=== PATIENT | male | born 1965 | race Caucasian/White ===

== ENCOUNTER 2025-05-17 19:23 | Inpatient (IN) | payer SELFPAY ==
[2025-05-17 19:25] VITALS: BP 125/80; PULSE 83; RESP 16; TEMP 36.8; O2SAT 96; BMI 19.3
--- NOTE | 2025-05-17 19:27 | ED.C_ITS ---
HPI - Psych 2 General: Chief Complaint: Psychiatric Symptoms Stated Complaint: 96 HOUR HOLD Time Seen by Provider: 05/17/25 19:26 Source: patient Mode of arrival: ambulatory Limitations: no limitations History of Present Illness: Patient is a 60-year-old male who presents to ED today on 96 hour hold. According to hold paperwork, affidavit was filed by [facility]. They reported that they were unable to meet with client directly but was able to observe several text messages sent by the patient consisting of delusional thought content of a spiritual nature. Affidavit states the client sent 100s of text messages over a brief period of time with ruminating thoughts and paranoia. During my examination with patient he does have somewhat excessive and tangential speech. MD complaint: other (96 hour hold) Relieving factors: none Exacerbating factors: none Associated psychiatric symptoms: none Associated symptoms: Deny auditory hallucinations, visual hallucinations, depression, homicidal ideation or suicidal ideation Treatments prior to arrival: none Related Data Allergies Allergy/AdvReac Type Severity Reaction Status Date / Time No Known Allergies Allergy Verified 05/17/25 19:46 Review of Systems 2 Const: Denies: fever(s) or chills Card: Denies: chest pain, palpitations, lightheadedness or syncope Resp: Denies: dyspnea GI: Denies: abdominal pain, nausea, vomiting or diarrhea Skin/Breast: Denies: rash Neuro: Denies: headache(s) Psych: Denies: anxiety, depression, hopelessness, visual hallucinations, auditory hallucinations, suicidal ideation or homicidal ideation Physical Exam 2 Const: COMMON NORMALS: no acute distress, average body habitus, patient oriented x3, no limitations, healthy appearing, alert and well nourished G ENERAL APPEARANCE: cooperative NUTRITIONAL APPEARANCE: thin O RIENTATION/CONSCIOUSNESS: Yes awake, Yes oriented to person, Yes oriented to place and Yes oriented to time Resp: COMMON NORMALS: normal respiratory effort and clear to auscultation bilaterally AUSCULTATION: clear to auscultation bilaterally Cardio: COMMON NORMALS: regular rate and regular rhythm RATE: regular rate RHYTHM: regular rhythm Neuro: COMMON NORMALS: patient oriented x3 SENSORIUM/ORIENTATION: Yes alert, Yes oriented to person, Yes oriented to place and Yes oriented to time Psych: COMMON NORMALS: mental status grossly normal, cooperative, normal affect, speech normal, activity/motor behavior normal, denies hallucinations, denies homicidal ideation and denies suicidal ideation APPEARANCE: Yes grossly normal ATTITUDE: Yes calm ACTIVITY/MOTOR BEHAVIOR: Yes appropriate eye contact and No psychomotor agitation SPEECH: Yes normal speech MOOD & AFFECT: Yes euthymic mood THOUGHT PROCESS: disorganized (mild) and Tangential thought process present (mild) THOUGHT CONTENT: Yes Normal thought content present ATTENTION/CONCENTRATION: Yes attention grossly intact and Yes concentration grossly intact MEMORY/COGNITION: Yes memory grossly intact and Yes cognition grossly intact INSIGHT: Fair insight present (Psych) J UDGEMENT: Fair judgement present (Psych) Course 2 Consultations: Consultation #1: Dr. Peña-accepts to NPU Vital Signs: Vital signs: Vital Signs Temperature 98.2 F 05/17/25 19:25 Pulse Rate 83 05/17/25 19:25 Respiratory Rate 16 05/17/25 19:25 Blood Pressure 125/80 05/17/25 19:25 Pulse Oximetry 96 05/17/25 19:25 Oxygen Delivery Me thod Room Air 05/17/25 19:25 MDM - Psych Medical Decision Making Patient will be an admit to NPU to Dr. Peña for psychiatric assessment as he is on a 96 hour hold. Lab Data 05/17/25 19:48 05/17/25 19:48 Laboratory Results WBC 7.48 10^3/uL (3.29-11.43) 05/17/25 19:48 RBC 4.87 10^6/uL (3.85-5.65) 05/17/25 19:48 Hgb 14.80 g/dL (11.27-16.99) 05/17/25 19:48 Hct 43.9 % (37-53) 05/17/25 19:48 MCV 90.1 fl (82-101) 05/17/25 19:48 MCH 30.4 pg (27-33) 05/17/25 19:48 MCHC 33.7 g/dL (30-55) 05/17/25 19:48 RDW 12.7 % (12.1-15.1) 05/17/25 19:48 Plt Count 234 10^3/cmm (157-399) 05/17/25 19:48 MPV 9.6 fL (7.4-10.4) 05/17/25 19:48 Neut % (Auto) 55.2 % 05/17/25 19:48 Lymph % (Auto) 34.4 % 05/17/25 19:48 [place] % (Auto) 8.2 % 05/17/25 19:48 Eos % (Auto) 1.2 % 05/17/25 19:48 Baso % (Auto) 0.9 % 05/17/25 19:48 Neut # (Auto) 4.13 10^3/uL (1.8-7.7) 05/17/25 19:48 Lymph # (Auto) 2.6 10^3/uL (0.8-4.8) 05/17/25 19:48 [place] # (Auto) 0.6 10^3/uL (0.2-0.9) 05/17/25 19:48 Eos # (Auto) 0.1 10^3/uL (0.0-0.8) 05/17/25 19:48 Baso # (Auto) 0.1 10^3/uL (0.0-0.1) 05/17/25 19:48 Nucleated RBC % (auto) 0 % 05/17/25 19:48 Nucleated RBCs # 0.0 /100WBC 05/17/25 19:48 Sodium 137 mmol/L (136-145) 05/17/25 19:48 Potassium 3.8 mmol/L (3.5-5.1) 05/17/25 19:48 Chloride 97 mmol/L (98-107) L 05/17/25 19:48 Carbon Dioxide 24 mmol/L (22-29) 05/17/25 19:48 Anion Gap 19.8 (5-19) H 05/17/25 19:48 BUN 18 mg/dL (8-23) 05/17/25 19:48 Creatinine 0.8 mg/dL (0.7-1.2) 05/17/25 19:48 GFR Calculation 98.0 mL/min (90-130) 05/17/25 19:48 Glucose 131 mg/dL (65-115) H 05/17/25 19:48 Calculated Osmolality 288 mOsm/kg (285-295) 05/17/25 19:48 Calcium 9.3 mg/dL (8.5-10.5) 05/17/25 19:48 Total Bilirubin 0.5 mg/dL (0.15-1.2) 05/17/25 19:48 AST 19 U/L (0-40) 05/17/25 19:48 ALT 8 U/L (0-41) 05/17/25 19:48 Alkaline Phosphatase 59 U/L (40-130) 05/17/25 19:48 Total Protein 7.6 g/dL (6.6-8.7) 05/17/25 19:48 Albumin 4.4 g/dL (3.5-5.2) 05/17/25 19:48 Globulin 3.2 g/dL (1.3-4.6) 05/17/25 19:48 Salicylates < 0.3 mg/dL (3-10) L 05/17/25 19:48 Acetaminophen < 5.0 ug/mL (10-30) L 05/17/25 19:48 Ethyl Alcohol < 10 mg/dL (0-10) 05/17/25 19:48 No radiology studies performed this visit Discharge Plan Discharge Patient Disposition: Admitted As Inpatient Clinical Impression: Involuntary commitment Condition: Stable Coding Level of Care Code ED Clinical Document Improvement Educator for Peggy Patel
--- OUTSIDE RECORDS SUMMARY | 2025-05-17 19:27 | XMS_ITS | Encounter Summary ---
Author Organization [email or web address] [facility] Address [address] [place] [address] Care Team Providers Care Sr. Manager Corporate Communications Name Role Phone Unavailable Primary Care Provider Unavailabl e Encounter Details Date Type Department Care Team (Latest Contact Info) Description 09/05/2004 Outpatient Historical [facility] Neurology [address], [address] [place] [address] Debra Rodriguez MD [address] [place] [address] BONE CYST NEC (Primary Dx) Social History Tobacco Use Types Packs/Day Years Used Date Smoking Tobacco: Never Assessed Sex and Gender Information Value Date Recorded Sex Assigned at Not on file 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
--- OUTSIDE RECORDS SUMMARY | 2025-05-17 19:27 | XMS_ITS | Encounter Summary ---
Author Organization [facility] Address [address] [place] [address] Care Team Providers Care Trawl Net Maker Name Role Phone Unavailable Primary Care Provider Unavailabl e Encounter Details Date Type Department Care Team (Late st Contact Info) Description 09/24/2004 Outpatient Historical [facility] Ear, Nose and Throat 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
--- OUTSIDE RECORDS SUMMARY | 2025-05-17 19:27 | XMS_ITS | Clinical Summary ---
Author Organization [facility] Address [address] 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
--- OUTSIDE RECORDS SUMMARY | 2025-05-17 19:27 | XMS_ITS | Encounter Summary ---
Author Organization [facility] Address [address] [place] [address] Care Team Providers Care Microbiology Quality Control Technician Name Role Phone Unavailable Primary Care Provider Unavailabl e Encounter Details Date Type Department Care Team (Latest Contact Info) Description 09/23/2004 Outpatient Historical [facility] Neurosurgery- [address] [place] [address] Hamilton Reyes MD [address] [place] [address] BRAIN NEOPLASM NOS (CMS/HCC) (Primary Dx) Social History Tobacco Use Types Packs/Day Years Used Date Smoking Tobacco: Never Assessed Sex and Gender Information Value Date Recorded Sex Assigned at Not on file 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
--- NOTE | 2025-05-17 19:52 | PC.NURSE ---
Dunia Spence called for patient update. Was instructed by patient to give daughter update on patient status. Dunia Bebe Moe can be contacted by [phone]
[2025-05-17 19:55] LABS: Hematocrit 43.9 % (37-53); Hemoglobin 14.80 g/dL (11.27-16.99); Mean Corpuscular HGB Conc 33.7 g/dL (30-55); Mean Corpuscular Hemoglobin 30.4 pg (27-33); Mean Corpuscular Volume 90.1 fl (82-101); Nucleated Red Blood Cells % 0 %; Platelet Count 234 10^3/cmm (157-399); Red Blood Count 4.87 10^6/uL (3.85-5.65); White Blood Count 7.48 10^3/uL (3.29-11.43)
--- NOTE | 2025-05-17 20:03 | PC.NURSE ---
96 Hour Involuntary Hold Patient Rights have been reviewed with the patient and a copy of the same has been provided to him. Manager Retail Sales Jones was present at bedside during the presentation of Rights.
[2025-05-17 20:14] LABS: Alanine Aminotransferase 8 U/L (0-41); Albumin Level 4.4 g/dL (3.5-5.2); Alkaline Phosphatase 59 U/L (40-130); Anion Gap 19.8 (5-19); Aspartate Amino Transferase 19 U/L (0-40); Blood Urea Nitrogen 18 mg/dL (8-23); Calcium 9.3 mg/dL (8.5-10.5); Carbon Dioxide 24 mmol/L (22-29); Chloride 97 mmol/L (98-107); Creatinine Clr Calc Pharmacy 92.4815; Globulin 3.2 g/dL (1.3-4.6); Glucose 131 mg/dL (65-115); Osmolality Calculated 288 mOsm/kg (285-295); Potassium 3.8 mmol/L (3.5-5.1); Sodium 137 mmol/L (136-145); Total Protein 7.6 g/dL (6.6-8.7)
[2025-05-17 20:15] LABS: Acetaminophen < 5.0 ug/mL (10-30); Alcohol Level < 10 mg/dL (0-10); Salicylate < 0.3 mg/dL (3-10)
--- NOTE | 2025-05-17 21:46 | PC.NURSE ---
Report was called to Maged MACIAS in NPU; all questions and concerns were addressed at time of report.
[2025-05-17 23:31] VITALS: BP 131/82; PULSE 65; RESP 20; TEMP 36.4; O2SAT 98
[2025-05-18 00:22] LABS: PCP Screen Urine Negative (Negative)
[2025-05-18 06:00] VITALS: BP 96/62; PULSE 62; RESP 19; TEMP 36.4; O2SAT 97
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
[2025-05-18 14:00] VITALS: BP 136/82; PULSE 56; RESP 16; TEMP 36.4; O2SAT 99
[2025-05-18 21:40] VITALS: BP 115/71; PULSE 65; RESP 17; TEMP 36.5; O2SAT 98
[2025-05-19 06:00] VITALS: BP 125/79; PULSE 80; RESP 19; TEMP 36.4; O2SAT 96
[2025-05-19 14:00] VITALS: BP 131/60; PULSE 66; RESP 17; TEMP 36.5; O2SAT 99
--- NOTE | 2025-05-19 15:36 | P.NPUPN_ITS ---
Subjective NPU 2 Subjective: Patient presented today reporting that he is fine and continues to endorse that this is just a misunderstanding. He denies any major complaints or concerns and reports that he is just having a misunderstanding with his family. He denies any need for medications or any interventions. He is mostly focused on when might be reasonable for him to be discharged. Mental Status Exam 2 MSE Comments: This is a slender/underweight white male in hospital scrubs looking older than his stated age with limited grooming and adequate eye contact. No abnormal movements except for mild psychomotor agitation. Mostly cooperative with exam in mild to moderate distress. Speech was increased rate but normal volume and at times feeling pressured. Mood described as fine affect was euthymic and possibly slightly elevated. Thought process was linear. But also at times I and disorganized. Thought content: Patient denies suicidal or homicidal ideation, there were no delusions reported but some signs of paranoia versus persecutory thinking/delusions, he denied auditory or visual hallucinations but some of the things he spoke about certainly could have been perceptual disturbances. Attention and concentration appeared intact and memory appeared unreliable but no more formally tested. He is alert and oriented to person and place. Insight, judgment and impulse control are impaired. Vitals/I&O/Wt Last Vital Signs Temp 97.6 F 05/19/25 06:00 Pulse 80 05/19/25 06:00 Resp 19 H 05/19/25 06:00 BP 125/79 05/19/25 06:00 Pulse Ox 96 05/19/25 06:00 O2 Del Method Room Air 05/19/25 06:00 Weight last 48 hrs Weight 61.235 kg Data NPU 05/17/25 19:48 05/17/25 19:48 A&P Assessment and plan (1) Involuntary commitment: (2) Psychosis: (3) Cannabis use disorder: (4) Hypomania: Plan Patient is a 60-year-old white male who is known only through a recent crisis interaction yesterday who is presenting with a positive UDS for cannabis and denying any knowledge of why he is here or what would be the reason for the need for any intervention. He identified that he did have some conflict but he reports it was no big deal. [facility]/crisis was able to have access to some messages that he sent that seem to identify ruminating thoughts and paranoia and there were clear indications of thoughts of lethality. 1. Encourage individual, group and milieu therapy. 2. Continue every 15 minute checks for safety. 3. Recommend sober living treatment at the highest level of care to which the patient is willing to commit. 4. We will consider medications. 5. Obtain collateral information. 6. Evaluate against the backdrop of the 96-hour hold. PDMP PDMP Reviewed: Not Reviewed Involuntary Hold Information 2 Hold Status: Legal Status: 96 Hour Hold Date/Time Hold Expires: 05/23/2025 Attestations NPU 2 Medical Necessity Statement*: Inpatient hospitalization is medically necessary and the clinically appropriate intervention at this time. We will monitor/initiate medications and make changes as indicated. Likely length of stay is 3-5 days. Coding Level of Care Code Acute Code for [facility] Fwd Diagnoses Involuntary commitment Z04.6 Psychosis F29 Cannabis use disorder F12.90 Hypomania F30.8
[2025-05-19 20:31] VITALS: BP 131/94; PULSE 97; RESP 16; TEMP 36.6; O2SAT 95
[2025-05-20 06:00] VITALS: BP 119/71; PULSE 116; RESP 18; TEMP 36.3; O2SAT 99
--- NOTE | 2025-05-20 07:45 | P.NPUPN_ITS ---
Subjective NPU 2 Subjective: Patient presented today reporting that he is doing fine and is hopeful that he will be discharged. We discussed the challenges that have been created by his behaviors as they were described by his daughter. He reports that he has information and refute this on his phone or in his wallet. He is supposed to produce something from there to be evaluated then will be put in the chart which he believes is explanatory for his behavior. We agreed we would review that and continue to evaluate. We discussed that Dr. Lange would be here tomorrow for final decision and he continues to deny any need for medication. We discussed the fact that he is having slight improvement since admission which seems suggestive that the cannabis use may be playing a significant role in the behaviors of concern. Mental Status Exam 2 MSE Comments: This is a slender/underweight white male in hospital scrubs looking older than his stated age with limited grooming and adequate eye contact. No abnormal movements except for mild psychomotor agitation. Mostly cooperative with exam in mild to moderate distress. Speech was increased rate but normal volume and at times feeling pressured. Mood described as fine affect was euthymic and possibly slightly elevated. Thought process was linear. But also at times I and disorganized. Thought content: Patient denies suicidal or homicidal ideation, there were no delusions reported but some signs of paranoia versus persecutory thinking/delusions, he denied auditory or visual hallucinations but some of the things he spoke about certainly could have been perceptual disturbances. Attention and concentration appeared intact and memory appeared unreliable but no more formally tested. He is alert and oriented to person and place. Insight, judgment and impulse control are impaired. Vitals/I&O/Wt Last Vital Signs Temp 97.4 F L 05/20/25 06:00 Pulse 116 H 05/20/25 06:00 Resp 18 05/20/25 06:00 BP 119/71 05/20/25 06:00 Pulse Ox 99 05/20/25 06:00 O2 Del Method Room Air 05/20/25 06:00 Data NPU 05/17/25 19:48 05/17/25 19:48 A&P Assessment and plan (1) Involuntary commitment: (2) Psychosis: (3) Cannabis use disorder: (4) Hypomania: Plan Patient is a 60-year-old white male who is known only through a recent crisis interaction yesterday who is presenting with a positive UDS for cannabis and denying any knowledge of why he is here or what would be the reason for the need for any intervention. He identified that he did have some conflict but he reports it was no big deal. [facility]/crisis was able to have access to some messages that he sent that seem to identify ruminating thoughts and paranoia and there were clear indications of thoughts of lethality. 1. Encourage individual, group and milieu therapy. 2. Continue every 15 minute checks for safety. 3. Recommend sober living treatment at the highest level of care to which the patient is willing to commit. 4. We will consider medications. 5. Obtain collateral information. Had a chance to speak with his daughter who confirms that the behaviors we saw on the first days he was on the unit which was hyper energetic and appeared manic is what they have been seeing in were concerned about. He continues to dispute this and family is not backing down. We discussed his cannabis use and the role this could be playing in his presentation 6. Evaluate against the backdrop of the 96-hour hold. PDMP PDMP Reviewed: Not Reviewed Involuntary Hold Information 2 Hold Status: Legal Status: 96 Hour Hold Date/Time Hold Expires: 05/23/2025 Attestations NPU 2 Medical Necessity Statement*: Inpatient hospitalization is medically necessary and the clinically appropriate intervention at this time. We will monitor/initiate medications and make changes as indicated. Likely length of stay is 2-4 days. Coding Level of Care Code Acute Code for [facility] Fwd Diagnoses Involuntary commitment Z04.6 Psychosis F29 Cannabis use disorder F12.90 Hypomania F30.8
[2025-05-20 14:00] VITALS: BP 134/87; PULSE 81; RESP 18; TEMP 36.6; O2SAT 98
[2025-05-20 20:56] VITALS: BP 109/80; PULSE 89; RESP 18; TEMP 36.3; O2SAT 96
[2025-05-21 06:00] VITALS: BP 106/74; PULSE 66; RESP 16; TEMP 36.6; O2SAT 97; BMI 16.9
[2025-05-21 14:00] VITALS: BP 135/85; PULSE 89; RESP 17; TEMP 36.4; O2SAT 97
--- NOTE | 2025-05-21 17:24 | P.NPUPN_ITS ---
Subjective NPU 2 Subjective: 60-year-old male admitted with psychosis . The patient had continued to minimize the effects that his 40 years of use may have had on his thinking. He states that he did not have any clear recollection as to why he should be here but stated that he feels that the housing court judge will make a decision. He had reported that he hoped to go home soon. He had reported that he had been using marijuana from someone else and that it may have been possibly tainted. He had minimized the possibility that the marijuana he had been using could have affected his mood and his thinking. He did report that he was feeling better. He had reported having some difficulty falling asleep secondary to pain from a bone spur. Mental Status Exam 2 MSE Comments: This is a slender/underweight white male in hospital scrubs looking older than his stated age with limited grooming and adequate eye contact. No abnormal movements except for mild psychomotor retardation. He was mostly cooperative with exam in mild to moderate distress. Speech was increased rate but normal volume and at times feeling pressured. Mood described as fine. His affect was irritable and mood incongruent. Thought process was circumstantial. Thought content: Patient denies suicidal or homicidal ideation, there were no delusions reported but some signs of paranoia versus persecutory thinking/delusions, he denied auditory or visual hallucinations and did not appear to be responding to internal stimuli. Attention and concentration appeared intact and memory appeared unreliable but no more formally tested. He is alert and oriented to person and place. Insight, judgment and impulse control are impaired. Vitals/I&O/Wt Last Vital Signs Temp 97.5 F L 05/21/25 14:00 Pulse 89 05/21/25 14:00 Resp 17 05/21/25 14:00 BP 135/85 05/21/25 14:00 Pulse Ox 97 05/21/25 14:00 O2 Del Method Room Air 05/21/25 06:00 Weight last 48 hrs Weight 53.637 kg Data NPU 05/17/25 19:48 05/17/25 19:48 A&P Assessment and plan (1) Involuntary commitment: (2) Psychosis: (3) Cannabis use disorder: (4) Hypomania: Plan Patient is a 60-year-old white male who is known only through a recent crisis interaction yesterday who is presenting with a positive UDS for cannabis and denying any knowledge of why he is here or what would be the reason for the need for any intervention. He identified that he did have some conflict but he reports it was no big deal. ACI/crisis was able to have access to some messages that he sent that seem to identify ruminating thoughts and paranoia and there were clear indications of thoughts of lethality. 1. Encourage individual, group and milieu therapy. 2. Continue every 15 minute checks for safety. 3. Recommend sober living treatment at the highest level of care to which the patient is willing to commit. 4. We will consider medications. 5. Obtain collateral information. Had a chance to speak with his daughter who confirms that the behaviors we saw on the first days he was on the unit which was hyper energetic and appeared manic is what they have been seeing in were concerned about. He continues to dispute this and family is not backing down. We discussed his cannabis use and the role this could be playing in his presentation 6. Evaluate against the backdrop of the 96-hour hold. PDMP PDMP Reviewed: Not Reviewed Involuntary Hold Information 2 Hold Status: Legal Status: 96 Hour Hold Date/Time Hold Expires: 05/23/2025 Attestations NPU 2 Medical Necessity Statement*: Inpatient hospitalization is medically necessary and the clinically appropriate intervention at this time. We will monitor/initiate medications and make changes as indicated. Likely length of stay is 2-4 days. Coding Level of Care Code Acute Code for Chg Fwd Diagnoses Involuntary commitment Z04.6 Psychosis F29 Cannabis use disorder F12.90 Hypomania F30.8
[2025-05-21 19:47] VITALS: BP 131/85; PULSE 76; RESP 22; TEMP 36.7; O2SAT 96
[2025-05-22 06:00] VITALS: BP 112/79; PULSE 67; RESP 17; TEMP 36.5; O2SAT 98
[2025-05-22 14:00] VITALS: BP 130/86; PULSE 77; RESP 18; TEMP 36.5; O2SAT 97
--- NOTE | 2025-05-22 15:57 | P.NPUPN_ITS ---
Subjective NPU 2 Subjective: 60-year-old male admitted with psychosis with bizarre statements made and threats to others made through text. Patient continued to minimize the events leading to his hospitalization. He had reported that it had been a misunderstanding. He had continued to state that he had been taking purified marijuana for years and knew the amount that he was taking on a daily basis. He had refused any medications at this time stating that he had no problems and did not need to be here. Mental Status Exam 2 MSE Comments: This is a slender/underweight white male in hospital scrubs looking older than his stated age with limited grooming and adequate eye contact. He was intrusive and had poor physical boundaries. No abnormal involuntary motor movements except for mild psychomotor retardation. He was mostly cooperative with exam in mild to moderate distress. Speech was increased in rate but normal in volume with pressured speech appreciated. Mood described as fine. His affect was blunted today. Thought process was circumstantial. Thought content: Patient denies suicidal or homicidal ideation, there were no delusions reported but some signs of paranoia versus persecutory thinking/delusions, He did appear to be responding to internal stimuli. Attention and concentration appeared intact and memory appeared unreliable but no more formally tested. He is alert and oriented to person and place. Insight, judgment and impulse control are impaired. Vitals/I&O/Wt Last Vital Signs Temp 97.7 F 05/22/25 06:00 Pulse 67 05/22/25 06:00 Resp 17 05/22/25 06:00 BP 112/79 05/22/25 06:00 Pulse Ox 98 05/22/25 06:00 O2 Del Method Room Air 05/22/25 06:00 Weight last 48 hrs Weight 53.637 kg Data NPU 05/17/25 19:48 05/17/25 19:48 A&P PDMP PDMP Reviewed: Not Reviewed Involuntary Hold Information 2 Hold Status: Legal Status: 96 Hour Hold Date/Time Hold Expires: 05/23/2025 Attestations NPU 2 Medical Necessity Statement*: Inpatient hospitalization is medically necessary and the clinically appropriate intervention at this time. We will monitor/initiate medications and make changes as indicated. Likely length of stay is 6-8 days. Coding Level of Care Code Acute Code for Peggy Fwmonica
[2025-05-22 19:33] VITALS: BP 122/83; PULSE 87; RESP 21; TEMP 36.6; O2SAT 97
[2025-05-23 06:00] VITALS: BP 127/82; PULSE 84; RESP 20; TEMP 36.5; O2SAT 99
[2025-05-23 14:00] VITALS: BP 126/86; PULSE 68; RESP 18; TEMP 36.7; O2SAT 97
[2025-05-23 15:45] VITALS: BP 126/86; PULSE 68; RESP 18; TEMP 36.7; O2SAT 97
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
== END 2025-05-23 16:27 | disposition home or self-care (01) | DRG 885 ==
LOC: ER 21:13 → NP 21:34
PROVIDERS: Admitting Provider Psychiatry & Neurology Psychiatry; Emergency Provider Physician Assistant; Visit Provider Psychiatry & Neurology Psychiatry
DX: F30.8 Other manic episodes (principal); Z04.6 Encounter for general psychiatric examination, requested by authority; F12.90 Cannabis use, unspecified, uncomplicated
CPT/HCPCS: 36415; 80053; 80306; 80307; 85025; 97150; 97165; 99285